=== PATIENT | male | born 1965 | race Hispanic/Latino ===

== ENCOUNTER → 2024-09-11 | Outpatient (CLI) | payer OTHER ==
--- NOTE | 2024-09-11 15:00 | NUR ---
MBSS COMPLETED (OUTPATIENT). SILENT ASPIRATION before the swallow with mixed textures; deep non-transient penetrations during the swallow with regular textures and nectar thick liquids with no cough response. Recommend pureed solids, honey thick liquids and pills crushed with pureed as tolerated. Compensatory strategies: 1. sit upright during oral intake 2. small bites/sips 3. slow oral intake 4. extra dry swallows 5. NO STRAWS HEAD KILN OPERATOR reviewed results and recommendations with patient and family. HEAD KILN OPERATOR educated patient on risks and consequences of aspiration. Can of thickener provided to patient with demonstrations on how to prepare honey thick liquids. Pt and family voiced understanding. Speech therapy warranted at this time. All questions answered. Addendum: 09/11/[address] [facility] RO[facility] Amended: Links added.
--- NOTE | 2024-09-11 17:09 | HMCIMG ---
MODIFIED BARIUM SWALLOW W CINE REASON: Dysphagia/Feeding difficulties, unspecified. COMPARISON: None TECHNIQUE: Modified barium swallow study was performed by the referring speech therapist. FINDINGS: Please see procedure report by referring speech therapist. IMPRESSION: Modified barium swallow study.
== END | disposition home or self-care (01) ==
LOC: RAH 14:04
PROVIDERS: ATTEND Internal Medicine Gastroenterology
DX: R13.10 Dysphagia, unspecified (principal); R63.30 Feeding difficulties, unspecified
CPT/HCPCS: 74230; 92611